=== PATIENT | female | born 1980 | race Caucasian/White ===

== ENCOUNTER 2017-06-21 06:02 | Day surgery (SDC) | payer OTHER ==
[~2017-06-21] VITALS: Ht 152.4 cm; Wt 44.1 kg
[2017-06-21 06:32] VITALS: Ht 152.4 cm; Wt 44.1 kg
[2017-06-21] MEDS ORDERED: DOXYCYCLINE (06:47)
[2017-06-21 07:21] VITALS: BP 114/78; PULSE 84; RESP 20
--- NOTE | 2017-06-21 07:43 | OPPN ---
Date/Time of Note Date/Time of Note DATE: 06/21/17 TIME: 07:42 Operative Report Preoperative Diagnosis Gastroesophageal reflux disease Postoperative Diagnosis Small hiatal hernia and gastroesophageal reflux disease Gastritis with erosions Operation/Procedure Performed Esophagogastroduodenoscopy and biopsy Surgeon see signature line social services assistant None Anesthesia: moderate sedation Estimated blood loss: none Transfusion Required none Specimen Gastric mucosal biopsy Grafts/Implants none Complications none YAZMIN GARNER MD Jun 21, 2017 07:43
[2017-06-21] MEDS ORDERED: FENTAnyl 50 MCG/ML VIAL ONE (07:49)
[2017-06-21] MEDS ORDERED: MIDAZOLAM 1 MG/ML 2 ML INJ ONE (07:49)
[2017-06-21 08:02] VITALS: BP 108/66; PULSE 74; RESP 14
--- NOTE | 2017-06-21 08:19 | GILP ---
DATE OF PROCEDURE: NAME OF PROCEDURES: Esophagogastroduodenoscopy and biopsy. SURGEON: Norbert Child MD PREOPERATIVE DIAGNOSES: Chronic heartburn. POSTOPERATIVE DIAGNOSES: 1. Small hiatal hernia. 2. Gastroesophageal reflux disease. 3. Gastritis with erosions. 4. Gastric mucosal biopsies were taken for Helicobacter pylori test. INDICATION FOR THE PROCEDURE: Mr. Kamila Fuentes is a 37-year-old female patient who had chronic heartbu rn, not responding to therapy. The patient was scheduled for endoscopic examination for further stephan luation. The procedure and possible complications were well explained to the patient. The patient understood and consented to the procedure. DESCRIPTION OF PROCEDURE: Under the influence of fentanyl and Versed, the gastroscope was carefully introduced into the esophagus and under direct vision it was advanced to the stomach and through th e pylorus into the duodenal bulb and descending duodenum. FINDINGS: ESOPHAGUS: The patient had a small hiatal hernia and gastroesophageal reflux disease. STOMACH: She had gastritis with erosions. Gastric mucosal biopsies were taken for H. pylori test. Duodenum was normal. She tolerated the procedure very well and there was no complication from the procedure. At the end of the procedure, she was awake with stable vital signs and she was discharged home to the care of [facility] family. IMPRESSION: Please see postoperative diagnoses. PLAN: 1. Pantoprazole 40 mg p.o. q.a.m. 2. Await Helicobacter pylori test report. Dictated By: NORBERT ARROYO/DALY Conf#: [id number] DID#: [id number]
== END 2017-06-21 15:45 | disposition home or self-care (01) ==
LOC: GIL 06:02
PROVIDERS: ATTEND Internal Medicine Gastroenterology
DX: K44.9 Diaphragmatic hernia without obstruction or gangrene (principal); K21.9 Gastro-esophageal reflux disease without esophagitis; K29.60 Other gastritis without bleeding
CPT/HCPCS: 43239; 84703; 87081; J2250; J3010; Z7610

== ENCOUNTER 2017-07-14 08:00 | Day surgery (SDC) | payer OTHER ==
[~2017-07-14] VITALS: Ht 152.4 cm; Wt 41.1 kg
[~2017-07-14 08:00] MED LIST: DOXYCYCLINE
[2017-07-14] MEDS ORDERED: [UNRECOGNIZED DRUG - OTHER] (08:57)
[2017-07-14] MEDS ORDERED: [UNRECOGNIZED DRUG - OTHER] (08:57)
[2017-07-14] MEDS ORDERED: [UNRECOGNIZED DRUG - OTHER] (08:57)
[2017-07-14 08:59] VITALS: Ht 152.4 cm; Wt 41.1 kg
[2017-07-14 09:27] VITALS: BP 104/68; PULSE 73; RESP 18
--- NOTE | 2017-07-14 10:52 | OPPN ---
Date/Time of Note Date/Time of Note DATE: 07/14/17 TIME: 10:52 Operative Report Preoperative Diagnosis Change in bowel habit Rectal bleeding Postoperative Diagnosis Internal hemorrhoids Operation/Procedure Performed Colonoscopy Surgeon see signature line export sales assistant None Anesthesia: moderate sedation Estimated blood loss: none Transfusion Required none Specimen None Grafts/Implants none Complications none YAZMIN GARNER MD Jul 14, 2017 10:52
[2017-07-14] MEDS ORDERED: MIDAZOLAM 1 MG/ML 2 ML INJ ONE ×2 (10:53)
[2017-07-14] MEDS ORDERED: FENTAnyl 50 MCG/ML VIAL ONE (10:53)
--- NOTE | 2017-07-14 13:52 | GILP ---
DATE OF PROCEDURE: NAME OF PROCEDURE: Colonoscopy. SURGEON: Yazmin Child MD PREOPERATIVE DIAGNOSES: 1. Rectal bleeding. 2. Change in the bowel habit. POSTOPERATIVE DIAGNOSES 1. Colonoscopy all the way to the cecum. 2. Internal hemorrhoids. 3. No colon neoplasm was identified. INDICATION FOR THE PROCEDURE: Ms. Kamila Fuentes is a 37-year-old female patient who noticed a change in the bowel habit associated with rectal bleeding. The patient was scheduled for colonoscopy for fur ther evaluation. The procedure and possible complications are well explained to the patient. The patient understood and consented to the procedure. DESCRIPTION OF PROCEDURE: Under the influence of fentanyl and Versed, the colonoscope was carefully introduced in the rectum and under direct vision it was advanced all the way to the cecum. FINDINGS: The patient had internal hemorrhoids. No colitis or neoplasm was identified. She tolerated the procedure very well and there was no complication from the procedure. At the end of the procedure, she was awake with stable vital signs and she was discharged home to the care of h er family. IMPRESSION: 1. Please see postoperative diagnoses. PLAN: 1. Anusol-HC 2.5% cream b.i.d. p.r.n. 2. High fiber diet. 3. Continue MiraLax. Dictated By: YAZMIN ARROYO/DALY Conf#: [id number] DID#: [id number]
== END 2017-07-14 12:08 | disposition home or self-care (01) ==
LOC: GIL 08:00
PROVIDERS: ATTEND Internal Medicine Gastroenterology
DX: R19.4 Change in bowel habit (principal); K64.8 Other hemorrhoids
CPT/HCPCS: 45378; 84703; J2250; J3010; Z7610

== ENCOUNTER 2017-10-31 05:38 | Day surgery (SDC) | END 2017-10-31 11:23 | disposition home or self-care (01) ==